=== PATIENT | male | born 1935 | race Two or more races ===

== ENCOUNTER → 2016-11-18 | Day surgery (SDC) | payer MEDICARE ==
[~2016-11-18] VITALS: Ht 167.6 cm; Wt 68.0 kg
[2016-11-18] VITALS (7 sets, daily range): BP systolic 83–101; BP diastolic 45–50
[~2016-11-18] MED LIST: ATOR20TA65 PO; DOCU-150 PO; DUTA0.5C2 PO; FAMO20TA8 PO; FENTANYL CITRATE/PF 50MCG/ML 2ML VIAL IV ONE; FENTANYL CITRATE/PF 50MCG/ML 2ML VIAL ONE; IOHEXOL-300 100 ML BOTTLE ONE; LIDOCAINE HCL 1% 20ML VIAL (Pyxis) INJ ONE; SODIUM BICARBONATE 4% (2.4MEQ) 5ML VIAL IV ONE; TAMS0.4C31 PO
== END | disposition home or self-care (01) ==
LOC: PVL 09:15
PROVIDERS: ATTEND Specialist
DX: N13.6 Pyonephrosis (principal); D72.829 Elevated white blood cell count, unspecified; M10.9 Gout, unspecified; J44.9 Chronic obstructive pulmonary disease, unspecified; E78.5 Hyperlipidemia, unspecified; Z85.51 Personal history of malignant neoplasm of bladder; I12.9 Hypertensive chronic kidney disease with stage 1 through stage 4 chronic kidney disease, or unspecified chronic kidney disease; N18.3 Chronic kidney disease, stage 3 (moderate); Z87.891 Personal history of nicotine dependence
CPT/HCPCS: 50432; 50435; 82962; 87086; 87106; 99152; 99153; C1725; C1769; J3010; J3490; J7040; Q9967